=== PATIENT | male | born 1980 | race African-American/Black ===

== ENCOUNTER 2016-09-21 17:42 | Emergency (ER) | payer OTHER ==
[~2016-09-21 17:42] MED LIST: BENTYL10 MG
== END 2016-09-21 18:11 | disposition home or self-care (01) ==
LOC: SED 17:42
DX: S39.012A Strain of muscle, fascia and tendon of lower back, initial encounter (principal); X50.1XXA Overexertion from prolonged static or awkward postures, initial encounter
CPT/HCPCS: 99282; J1885